=== PATIENT | female | born 1960 | race African-American/Black ===

== ENCOUNTER 2017-04-11 23:11 | Emergency (ER) | payer MEDICAID ==
[~2017-04-11] VITALS: Ht 167.6 cm; Wt 73.0 kg
[~2017-04-11 23:11] MED LIST: ASPI-1159 PO; ATOR20TA65 PO; EMTR1TAB13 PO; ESCI10TA54 PO; LOSA50TA20 PO; LURA40TA PO; METO-385 PO; OMEP-265 PO
[2017-04-12] MEDS ORDERED: FAMOTIDINE 20MG/2ML VIAL IV STA (00:23)
[2017-04-12] MEDS ORDERED: MORPHINE SULFATE 4 MG/ML CPJ (NOT FOR IM USE) IV STA (00:23)
[2017-04-12] MEDS ORDERED: METOCLOPRAMIDE HCL 10MG/2ML VIAL IV STA (00:23)
[2017-04-12] MEDS ORDERED: SODIUM CHLORIDE 0.9% 1,000 ML IV ONE (00:23)
[2017-04-12 00:53] LABS: BASOPHILS % 0.1 % (0.0-2.0); HEMATOCRIT. 46.5 % (36.0-48.0); HEMOGLOBIN. 14.8 g/dL (12.0-16.0); LYMPHOCYTES % 10.9 % (20.0-50.0); MEAN CORPUSCULAR HEMOGLOBIN 27.8 pg (28.0-32.0); MEAN CORPUSCULAR VOLUME 87.3 fL (81.0-99.0); MEAN PLATELET VOLUME 8.9 fl (7.4-10.4); MONOCYTES % 5.9 % (2.0-8.0); NEUTROPHILS % 83.1 % (40.0-76.0); PLATELET 206 x1000/uL (130-400); RED BLOOD CELL COUNT 5.32 mill/uL (4.2-5.4); RED CELL DISTRIBUTION WIDTH 14.4 % (11.6-14.6)
[2017-04-12 01:05] LABS: CHLORIDE 99 mEq/L (98-107)
[2017-04-12 01:16] LABS: CARBON DIOXIDE 23 mEq/L (21-32)
[2017-04-12 04:32] VITALS: BP 144/77
== END 2017-04-12 04:36 | disposition home or self-care (01) ==
LOC: ER 23:11
DX: G89.29 Other chronic pain (principal); R10.13 Epigastric pain; I10 Essential (primary) hypertension; F17.210 Nicotine dependence, cigarettes, uncomplicated; Z20.6 Contact with and (suspected) exposure to human immunodeficiency virus [HIV]; Z88.6 Allergy status to analgesic agent; Z79.82 Long term (current) use of aspirin; Z87.11 Personal history of peptic ulcer disease
CPT/HCPCS: 36415; 80053; 83690; 85025; 96361; 96374; 96375; 99285; J2270; J2765; J3490; J7030; Z7610

== ENCOUNTER 2017-05-04 13:30 | Emergency (ER) | payer MEDICAID ==
[~2017-05-04] VITALS: Ht 170.2 cm; Wt 64.0 kg
[2017-05-04 13:55] VITALS: BP 113/65
== END 2017-05-04 18:11 | disposition left against medical advice (07) ==
LOC: ER 15:29
DX: R29.810 Facial weakness (principal); Z53.21 Procedure and treatment not carried out due to patient leaving prior to being seen by health care provider

== ENCOUNTER 2017-05-07 22:56 | Emergency (ER) | payer MEDICAID ==
[~2017-05-07] VITALS: Ht 167.6 cm; Wt 73.0 kg
[2017-05-08] MEDS ORDERED: ONDANSETRON 4MG ODT PO STA (02:59)
[2017-05-08] MEDS ORDERED: MORPHINE SULFATE 4 MG/ML CPJ (NOT FOR IM USE) IV STA (02:59)
[2017-05-08] MEDS ORDERED: MAGNESIUM/ALUMINUM HYDROXIDE/SIMETHICONE 30ML UDC PO STA (02:59)
[2017-05-08] MEDS ORDERED: SODIUM CHLORIDE 0.9% 1,000 ML IV ONE (02:59)
[2017-05-08] MEDS ORDERED: FAMOTIDINE 20MG/2ML VIAL IV STA (02:59)
[2017-05-08 03:33] LABS: BASOPHILS % 0.4 % (0.0-2.0); HEMATOCRIT. 46.9 % (36.0-48.0); HEMOGLOBIN. 15.2 g/dL (12.0-16.0); LYMPHOCYTES % 12.6 % (20.0-50.0); MEAN CORPUSCULAR HEMOGLOBIN 27.6 pg (28.0-32.0); MEAN CORPUSCULAR VOLUME 85.3 fL (81.0-99.0); MEAN PLATELET VOLUME 8.9 fl (7.4-10.4); MONOCYTES % 6.1 % (2.0-8.0); NEUTROPHILS % 80.9 % (40.0-76.0); PLATELET 206 x1000/uL (130-400); RED CELL DISTRIBUTION WIDTH 14.4 % (11.6-14.6)
[2017-05-08 03:43] LABS: CLARITY URINE TURBID (CLEAR); COLOR URINE DARK YELLOW (YELLOW); KETONES URINE 1+ (NEGATIVE); LEUKOCYTE ESTERASE URINE 3+ (NEGATIVE); NITRITE URINE NEGATIVE (NEGATIVE); OCCULT BLOOD URINE TRACE (NEGATIVE); PROTEIN URINE 2+ (NEGATIVE)
[2017-05-08 03:45] LABS: INR 1.1; PROTHROMBIN TIME 11.6 sec (9.4-11.6)
[2017-05-08 03:47] LABS: CHLORIDE 95 mEq/L (98-107); ETHANOL BLOOD < 10 mg/dL
[2017-05-08 04:23] LABS: *AMPHETAMINES SCREEN URINE NEGATIVE (NEGATIVE); *BARBITURATES SCREEN URINE NEGATIVE (NEGATIVE); *BENZODIAZEPINES SCREEN URINE NEGATIVE (NEGATIVE); *COCAINE SCREEN URINE NEGATIVE (NEGATIVE); CANNABINOID URINE SCREEN PRESUMTIVE POSITIVE (NEGATIVE); METHADONE URINE SCREEN NEGATIVE (NEGATIVE); OPIATES URINE SCREEN PRESUMTIVE POSITIVE (NEGATIVE); PHENCYCLIDINE URINE SCREEN NEGATIVE (NEGATIVE)
[2017-05-08] MEDS ORDERED: POTASSIUM CHLORIDE 20MEQ/PACKET PO ONE (05:15)
[2017-05-08] MEDS ORDERED: CEFTRIAXONE 1 G PREMIX 50 ML IV ONE (05:15)
[2017-05-08] MEDS ORDERED: LANSOPRAZOLE 30MG DR CAPSULE NG ONE (05:15)
[2017-05-08] MEDS: POTASSIUM CHLORIDE 20MEQ TABLET SR PO NR ×2 (06:15→06:24)
[2017-05-08 07:48] VITALS: BP 200/100
== END 2017-05-08 07:50 | disposition home or self-care (01) ==
LOC: ER 22:56
DX: N39.0 Urinary tract infection, site not specified (principal); E86.0 Dehydration; I10 Essential (primary) hypertension; E87.6 Hypokalemia; R11.2 Nausea with vomiting, unspecified; Z79.82 Long term (current) use of aspirin; Z86.73 Personal history of transient ischemic attack (TIA), and cerebral infarction without residual deficits; Z91.14 Patient's other noncompliance with medication regimen; Z88.6 Allergy status to analgesic agent
CPT/HCPCS: 36415; 80053; 80305; 81001; 83690; 83735; 85025; 85610; 93005; 96361; 96365; 96375; 99285; G0482; J0696; J2270; J3490; J7030; Q0162; Z7610

== ENCOUNTER 2019-11-14 09:24 | Inpatient (IN) | payer MEDICAID ==
[~2019-11-14] VITALS: Ht 167.6 cm; Wt 75.4 kg
[~2019-11-14 09:24] MED LIST changes: -ASPI-1159 PO; +ASPI-1497 PO; -ESCI10TA54 PO; +ESCI10TA61 PO; -LOSA50TA20 PO; +LOSA50TA41 PO
[2019-11-14] MEDS ORDERED: ONDANSETRON HCL 4MG/2ML INJ IV STA (09:57)
[2019-11-14] MEDS ORDERED: MORPHINE SULFATE 4 MG/ML CPJ (NOT FOR IM USE) IV STA (09:57)
[2019-11-14] MEDS ORDERED: SODIUM CHLORIDE 0.9% 1,000 ML IV ONE (09:57)
[2019-11-14 10:34] LABS: CLARITY URINE CLEAR (CLEAR); COLOR URINE YELLOW (YELLOW); KETONES URINE NEGATIVE (NEGATIVE); LEUKOCYTE ESTERASE URINE TRACE (NEGATIVE); NITRITE URINE NEGATIVE (NEGATIVE); OCCULT BLOOD URINE NEGATIVE (NEGATIVE); PROTEIN URINE TRACE (NEGATIVE); SPECIFIC GRAVITY URINE 1.018 (1.005-1.030); UROBILINOGEN URINE 0.2 E.U./dL (0.2-1.0)
[2019-11-14 11:53] LABS: BASOPHILS % 0.4 % (0.0-2.0); HEMATOCRIT. 46.4 % (36.0-48.0); HEMOGLOBIN. 15.1 g/dL (12.0-16.0); LYMPHOCYTES % 16.7 % (20.0-50.0); MEAN CORPUSCULAR HEMOGLOBIN 28.5 pg (28.0-32.0); MEAN CORPUSCULAR VOLUME 87.5 fL (81.0-99.0); MONOCYTES % 5.6 % (2.0-8.0); NEUTROPHILS % 77.3 % (40.0-76.0); RED CELL DISTRIBUTION WIDTH 15.7 % (11.6-14.6)
[2019-11-14 11:58] LABS: CHLORIDE 100 mEq/L (98-107)
[2019-11-14 12:01] LABS: PROTHROMBIN TIME 10.6 sec (9.6-11.0)
[2019-11-14 12:05] LABS: HCG SCREEN NEGATIVE
[2019-11-14 12:21] LABS: MEAN PLATELET VOLUME 8.8 fl (7.4-10.4); PLATELET 172 x1000/uL (130-400)
[2019-11-14] MEDS ORDERED: MORPHINE SULFATE 4 MG/ML CPJ (NOT FOR IM USE) IV ONE (13:45)
[2019-11-14] MEDS ORDERED: HYDRALAZINE HCL 100MG TABLET PO ONE (14:15)
[2019-11-14] MEDS ORDERED: ACETAMINOPHEN 325MG TABLET PO PRN ×2 (15:45)
[2019-11-14] MEDS ORDERED: LORAZEPAM 0.5MG TABLET PO PRN (15:45)
[2019-11-14] MEDS ORDERED: DOCUSATE SODIUM 100MG CAPSULE PO PRN (15:45)
[2019-11-14] MEDS ORDERED: HYDROCODONE/ACETAMINOPHEN 5/325MG TABLET PO PRN (15:45)
[2019-11-14] MEDS ORDERED: GUAIFENESIN 200MG/10ML SUGAR FREE UDC PO PRN (15:45)
[2019-11-14] MEDS: SODIUM CHLORIDE 0.9% 1,000 ML IV SCH (16:21)
[2019-11-14 22:00] VITALS: BP 125/77
[2019-11-14 22:30] VITALS: BP 125/77
[2019-11-14] MEDS ORDERED: POTASSIUM CHLORIDE 20MEQ TABLET SR PO NR (23:15)
[2019-11-15] VITALS: BP 136/82
[2019-11-15] MEDS: HYDROMORPHONE HCL/PF 2MG/ML CPJ IV PRN (00:41)
[2019-11-15] MEDS: ONDANSETRON HCL 4MG/2ML INJ IV PRN ×2 (00:52→16:39)
[2019-11-15] MEDS: SODIUM CHLORIDE 0.9% 1,000 ML IV SCH ×3 (02:04→20:30)
[2019-11-15 04:00] VITALS: BP 132/82
[2019-11-15] MEDS ORDERED: PNEUMOCOCCAL 23-VAL P-SAC VAC 0.5 ML IM ONE (04:00)
[2019-11-15 06:47] LABS: CHLORIDE 101 mEq/L (98-107)
[2019-11-15 08:00] VITALS: BP 155/83
[2019-11-15] MEDS ORDERED: POTASSIUM CHLORIDE 20MEQ TABLET SR PO NR (08:39)
[2019-11-15] MEDS ORDERED: THIAMINE HCL 100MG TABLET PO SCH (09:00)
[2019-11-15 12:00] VITALS: BP 143/85
[2019-11-15] MEDS ORDERED: NON FORMULARY PATIENT HOME MED XX SCH ×3 (13:00)
[2019-11-15 16:00] VITALS: BP 154/85
[2019-11-15] MEDS ORDERED: SORBITOL 70% SOLN 30ML PO ONE (16:00)
[2019-11-15] MEDS: LOSARTAN POTASSIUM 50 MG TABLET PO SCH (16:15)
[2019-11-15] MEDS ORDERED: ATORVASTATIN CALCIUM 20MG TABLET PO SCH (17:00)
[2019-11-15 20:00] VITALS: BP 143/83
[2019-11-15] MEDS: SORBITOL 70% SOLN 30ML PO ONE ×2 (20:22→20:35)
[2019-11-15] MEDS: METOPROLOL TARTRATE 25MG TABLET PO SCH (21:27)
[2019-11-16] VITALS: BP 183/102
[2019-11-16] MEDS: HYDROMORPHONE HCL/PF 2MG/ML CPJ IV PRN ×2 (00:10→05:56)
[2019-11-16] MEDS: ONDANSETRON HCL 4MG/2ML INJ IV PRN (00:10)
[2019-11-16 04:00] VITALS: BP 168/102
[2019-11-16] MEDS: SODIUM CHLORIDE 0.9% 1,000 ML IV SCH (06:37)
[2019-11-16] MEDS ORDERED: OMEPRAZOLE 20MG CAPSULE EXTENDED RELEASE PO SCH (06:45)
[2019-11-16 08:00] VITALS: BP 187/97
[2019-11-16 08:05] LABS: CHLORIDE 106 mEq/L (98-107)
[2019-11-16 08:09] LABS: PARTIAL THROMBOPLASTIN TIME 26.9 sec (23.4-31.0); PROTHROMBIN TIME 10.9 sec (9.6-11.0)
[2019-11-16 08:18] LABS: HEMATOCRIT 39.6 % (36.0-48.0); HEMOGLOBIN 12.9 g/dL (12.0-16.0); MEAN CORPUSCULAR HEMOGLOBIN 28.4 pg (28.0-32.0); MEAN CORPUSCULAR VOLUME 87.2 fL (81.0-99.0); PLATELET 182 x1000/uL (130-400); RED BLOOD CELL COUNT 4.54 mill/uL (4.2-5.4); RED CELL DISTRIBUTION WIDTH 15.6 % (11.6-14.6)
[2019-11-16] MEDS: LOSARTAN POTASSIUM 50 MG TABLET PO SCH (09:00)
[2019-11-16] MEDS ORDERED: ASPIRIN 81MG EC TABLET PO SCH (09:00)
[2019-11-16] MEDS ORDERED: CITALOPRAM HYDROBROMIDE 10MG TABLET PO SCH (09:00)
[2019-11-16] MEDS: METOPROLOL TARTRATE 25MG TABLET PO SCH (09:01)
[2019-11-16] MEDS ORDERED: POTASSIUM CHLORIDE 20MEQ/PACKET PO NR (10:00)
[2019-11-16 11:58] VITALS: BP 180/89
[2019-11-16] MEDS ORDERED: CLONIDINE 0.1MG TABLET PO PRN (14:00)
[2019-11-16 15:09] VITALS: BP 155/89
[2019-11-16 15:59] VITALS: BP 180/79
[2019-11-17 10:06] LABS: % CD 4 POS. LYMPHOCYTES 47.3 % (30.8-58.5); % CD 8 POS. LYMPH 34.5 % (12.0-35.5); ABSOLUTE CD 3 1394 /uL (622-2402); ABSOLUTE CD 4 HELPER 804 /uL (359-1519); ABSOLUTE CD 8 SUPPRESSOR 587 /uL (109-897); ABSOLUTE LYMPHOCYTES 1.7 x10E3/uL (0.7-3.1); ABSOLUTE MONOCYTES 0.3 x10E3/uL (0.1-0.9); BASOPHILS 1 % (Not Estab.); CD4/CD8 RATIO 1.37 (0.92-3.72); HEMATOCRIT 39.9 % (34.0-46.6); HEMOGLOBIN 12.1 g/dL (11.1-15.9); IMMATURE GRANULOCYTES 0 % (Not Estab.); LYMPHOCYTES 43 % (Not Estab.); MEAN CORPUSCULAR HEMOGLOBIN 27.6 pg (26.6-33.0); MEAN CORPUSCULAR HGB CONC. 30.3 g/dL (31.5-35.7); MEAN CORPUSCULAR VOLUME 91 fL (79-97); MONOCYTES 8 % (Not Estab.); NEUTROPHILS 48 % (Not Estab.); PLATELETS 175 x10E3/uL (150-450); RBC 4.39 x10E6/uL (3.77-5.28); RED CELL DISTRIBUTION WIDTH 15.2 % (11.7-15.4)
[2019-11-17 13:11] LABS: ATYPICAL pANCA <1:20 titer (Neg:<1:20); SACCHAROMYCES CEREVISIAE IGG <20.0 Units (0.0-24.9); SACCHAROMYCES CEREVISIAE IGM <20.0 Units (0.0-24.9)
== END 2019-11-16 17:05 | disposition home or self-care (01) | DRG 254 ==
LOC: ER 09:24 → 5WST 14:44 → EDBEDREQ 14:49 → EDBEDREQSVC 14:49 → EDBEDREQTM 14:50 → ENRESERV 20:46
PROVIDERS: ADMIT Internal Medicine; ATTEND Internal Medicine
DX: K58.0 Irritable bowel syndrome with diarrhea (principal); I50.22 Chronic systolic (congestive) heart failure; I11.0 Hypertensive heart disease with heart failure; Z96.649 Presence of unspecified artificial hip joint; I08.0 Rheumatic disorders of both mitral and aortic valves; I16.1 Hypertensive emergency; E87.6 Hypokalemia; D72.810 Lymphocytopenia; M16.11 Unilateral primary osteoarthritis, right hip; N28.89 Other specified disorders of kidney and ureter; N39.0 Urinary tract infection, site not specified; Z79.82 Long term (current) use of aspirin; Z79.899 Other long term (current) drug therapy; I69.851 Hemiplegia and hemiparesis following other cerebrovascular disease affecting right dominant side
CPT/HCPCS: 36415; 74176; 80048; 80053; 81003; 83735; 84703; 85025; 85027; 86256; 86359; 86360; 86671; 87496; 87536; 90732; 93005; 96374; 99285; J1170; J2270; J2405; J7030

== ENCOUNTER 2019-11-19 10:49 | Inpatient (IN) | payer MEDICAID ==
[~2019-11-19] VITALS: Ht 167.6 cm; Wt 72.8 kg
[2019-11-19] MEDS ORDERED: ONDANSETRON HCL 4MG/2ML INJ IV STA (12:24)
[2019-11-19] MEDS ORDERED: SODIUM CHLORIDE 0.9% 1,000 ML IV ONE (12:24)
[2019-11-19] MEDS ORDERED: MORPHINE SULFATE 4 MG/ML CPJ (NOT FOR IM USE) IV STA (12:24)
[2019-11-19] MEDS ORDERED: HYDRALAZINE 20MG/ML VIAL IV ONE (12:45)
[2019-11-19 12:56] LABS: BASOPHILS % 0.4 % (0.0-2.0); HEMATOCRIT. 40.3 % (36.0-48.0); LYMPHOCYTES % 14.4 % (20.0-50.0); MEAN CORPUSCULAR HEMOGLOBIN 28.2 pg (28.0-32.0); MEAN CORPUSCULAR VOLUME 87.6 fL (81.0-99.0); MEAN PLATELET VOLUME 8.9 fl (7.4-10.4); MONOCYTES % 8.6 % (2.0-8.0); NEUTROPHILS % 76.6 % (40.0-76.0); PLATELET 182 x1000/uL (130-400); RED BLOOD CELL COUNT 4.61 mill/uL (4.2-5.4); RED CELL DISTRIBUTION WIDTH 16.1 % (11.6-14.6)
[2019-11-19 13:04] LABS: CHLORIDE 104 mEq/L (98-107)
[2019-11-19 13:08] LABS: PROTHROMBIN TIME 10.5 sec (9.6-11.0)
[2019-11-19 13:09] LABS: ETHANOL BLOOD < 10 mg/dL
[2019-11-19 13:36] LABS: CLARITY URINE CLEAR (CLEAR); COLOR URINE YELLOW (YELLOW); KETONES URINE NEGATIVE (NEGATIVE); LEUKOCYTE ESTERASE URINE NEGATIVE (NEGATIVE); NITRITE URINE NEGATIVE (NEGATIVE); OCCULT BLOOD URINE NEGATIVE (NEGATIVE); PH URINE 7.5 (4.5-8.0); PROTEIN URINE 2+ (NEGATIVE); SPECIFIC GRAVITY URINE 1.014 (1.005-1.030); UROBILINOGEN URINE 0.2 E.U./dL (0.2-1.0)
[2019-11-19 14:02] LABS: *AMPHETAMINES SCREEN URINE NEGATIVE (NEGATIVE); *BARBITURATES SCREEN URINE NEGATIVE (NEGATIVE); *BENZODIAZEPINES SCREEN URINE NEGATIVE (NEGATIVE); *COCAINE SCREEN URINE NEGATIVE (NEGATIVE); CANNABINOID URINE SCREEN PRESUMTIVE POSITIVE (NEGATIVE)
[2019-11-19 14:03] LABS: METHADONE URINE SCREEN NEGATIVE (NEGATIVE); OPIATES URINE SCREEN NEGATIVE (NEGATIVE); PHENCYCLIDINE URINE SCREEN NEGATIVE (NEGATIVE)
[2019-11-19] MEDS ORDERED: CLONIDINE 0.2MG TABLET PO ONE (15:00)
[2019-11-19] MEDS ORDERED: ASPIRIN 81MG TABLET PO ONE (15:00)
[2019-11-19] MEDS ORDERED: LEVOFLOXACIN 750MG PREMIX 150 ML IV ONE (15:00)
[2019-11-19] MEDS ORDERED: POTASSIUM CHLORIDE 20MEQ TABLET SR PO ONE (15:00)
[2019-11-19] MEDS ORDERED: METRONIDAZOLE 500 MG PREMIX 100 ML IV ONE (15:00)
[2019-11-19] MEDS ORDERED: CLONIDINE 0.1MG TABLET PO PRN (15:30)
[2019-11-19] MEDS ORDERED: DIPHENHYDRAMINE 50MG/ML VIAL IV PRN (15:30)
[2019-11-19] MEDS ORDERED: ONDANSETRON HCL 4MG/2ML INJ IV PRN (15:30)
[2019-11-19 15:48] LABS: PHOSPHORUS 2.8 mg/dL (2.5-4.9)
[2019-11-19] MEDS: MORPHINE SULFATE 2 MG/ML CPJ (NOT FOR IM USE) IV PRN ×2 (16:02→22:49)
[2019-11-19 16:20] VITALS: BP 221/119
[2019-11-19 16:22] VITALS: BP 221/119
[2019-11-19] MEDS: HYDRALAZINE 20MG/ML VIAL IV PRN (17:01)
[2019-11-19] MEDS ORDERED: HYDRALAZINE 20MG/ML VIAL IV SCH (18:00)
[2019-11-19] MEDS ORDERED: SORBITOL 70% SOLN 30ML PO NR (18:15)
[2019-11-19] MEDS ORDERED: MAGNESIUM/ALUMINUM HYDROXIDE/SIMETHICONE 30ML UDC PO PRN (18:15)
[2019-11-19] MEDS: METOCLOPRAMIDE HCL 10MG/2ML VIAL IV SCH (18:16)
[2019-11-19 20:00] VITALS: BP 147/85
[2019-11-19] MEDS ORDERED: PIPERACILLIN/TAZOBACTAM 3.375 G in DEXT 5% WATER 100 ML IV SCH (20:00)
[2019-11-19] MEDS: SODIUM CHLORIDE 0.9% 1,000 ML IV SCH (20:51)
[2019-11-19] MEDS: PIPERACILLIN/TAZOBACTAM 3.375 G in DEXT 5% WATER 100 ML IV SCH (22:24)
[2019-11-20] VITALS: BP 121/70
[2019-11-20] MEDS: METOCLOPRAMIDE HCL 10MG/2ML VIAL IV SCH ×5 (00:44→23:20)
[2019-11-20 04:00] VITALS: BP 137/84
[2019-11-20] MEDS: PIPERACILLIN/TAZOBACTAM 3.375 G in DEXT 5% WATER 100 ML IV SCH ×4 (04:18→23:20)
[2019-11-20 07:05] LABS: BASOPHILS % 0.5 % (0.0-2.0); HEMATOCRIT. 37.9 % (36.0-48.0); HEMOGLOBIN. 12.4 g/dL (12.0-16.0); LYMPHOCYTES % 25.9 % (20.0-50.0); MEAN CORPUSCULAR HEMOGLOBIN 28.3 pg (28.0-32.0); MEAN CORPUSCULAR VOLUME 86.4 fL (81.0-99.0); MEAN PLATELET VOLUME 9.3 fl (7.4-10.4); MONOCYTES % 12.6 % (2.0-8.0); PLATELET 192 x1000/uL (130-400); RED BLOOD CELL COUNT 4.39 mill/uL (4.2-5.4); RED CELL DISTRIBUTION WIDTH 16.1 % (11.6-14.6)
[2019-11-20 07:33] LABS: CHLORIDE 103 mEq/L (98-107)
[2019-11-20 08:00] VITALS: BP 153/95
[2019-11-20 08:00] LABS: LDL CHOLESTEROL 64 mg/dL (5-100)
[2019-11-20 08:02] LABS: HDL CHOLESTEROL 61 mg/dL (40-59)
[2019-11-20] MEDS ORDERED: POTASSIUM CHLORIDE 20MEQ TABLET SR PO SCH ×2 (10:15→13:00)
[2019-11-20] MEDS: METOPROLOL TARTRATE 50MG TABLET PO SCH ×2 (11:58→20:31)
[2019-11-20] MEDS: LOSARTAN POTASSIUM 50 MG TABLET PO SCH (11:58)
[2019-11-20 12:00] VITALS: BP 132/92
[2019-11-20 16:00] VITALS: BP 120/62
[2019-11-20] MEDS: SODIUM CHLORIDE 0.9% 1,000 ML IV SCH (17:06)
[2019-11-20 20:00] VITALS: BP 137/75
[2019-11-20] MEDS ORDERED: SORBITOL 70% SOLN 30ML PO SCH (20:00)
[2019-11-20] MEDS ORDERED: ATORVASTATIN CALCIUM 20MG TABLET PO SCH (21:00)
[2019-11-21] VITALS: BP 159/85
[2019-11-21 04:00] VITALS: BP 136/49
[2019-11-21] MEDS: METOCLOPRAMIDE HCL 10MG/2ML VIAL IV SCH ×3 (05:52→17:33)
[2019-11-21] MEDS: PIPERACILLIN/TAZOBACTAM 3.375 G in DEXT 5% WATER 100 ML IV SCH ×3 (05:52→17:33)
[2019-11-21] MEDS ORDERED: SORBITOL 70% SOLN 30ML PO SCH (06:00)
[2019-11-21] MEDS: MORPHINE SULFATE 2 MG/ML CPJ (NOT FOR IM USE) IV PRN ×2 (06:32→12:09)
[2019-11-21] MEDS ORDERED: OMEPRAZOLE 20MG CAPSULE EXTENDED RELEASE PO SCH (06:45)
[2019-11-21] MEDS ORDERED: NA PHOS,M-B/NA PHOS,DI-BA ENEMA 118ML PR SCH ×2 (09:00→09:30)
[2019-11-21] MEDS: LOSARTAN POTASSIUM 50 MG TABLET PO SCH (09:07)
[2019-11-21] MEDS: METOPROLOL TARTRATE 50MG TABLET PO SCH (09:07)
[2019-11-21 12:00] VITALS: BP 154/75
[2019-11-21] MEDS ORDERED: SIMETHICONE 40 MG/0.6 ML 30ML ONE (13:46)
[2019-11-21 14:12] LABS: CHLORIDE 109 mEq/L (98-107)
[2019-11-21 14:26] LABS: T4 FREE 1.95 ng/dL (0.76-1.46)
[2019-11-21] MEDS ORDERED: MIDAZOLAM HCL 5 MG/5 ML VIAL IV PRN (15:27)
[2019-11-21] MEDS ORDERED: MIDAZOLAM HCL 5 MG/5 ML VIAL ONE (15:27)
[2019-11-21] MEDS ORDERED: FENTANYL CITRATE/PF 50MCG/ML 2ML VIAL ONE (15:28)
[2019-11-21] MEDS ORDERED: FENTANYL CITRATE/PF 50MCG/ML 2ML VIAL IV PRN (15:28)
[2019-11-21] MEDS: HYDRALAZINE 20MG/ML VIAL IV PRN (15:43)
[2019-11-21] MEDS ORDERED: HYDRALAZINE 20MG/ML VIAL ONE (15:46)
[2019-11-21 17:22] VITALS: BP 162/80
[2019-11-21 20:00] VITALS: BP 140/64
[2019-11-21 20:17] VITALS: BP 140/64
== END 2019-11-21 21:31 | disposition home or self-care (01) | DRG 254 ==
LOC: ER 10:49 → 5WST 14:54 → ENRESERV 15:19
PROVIDERS: ADMIT Internal Medicine; ATTEND Internal Medicine
PROC: 0DBK8ZZ Excision of Ascending Colon, Via Natural or Artificial Opening Endoscopic (ICD-10-PCS; principal; 2019-11-21)
DX: K59.00 Constipation, unspecified (principal); K63.5 Polyp of colon; K92.2 Gastrointestinal hemorrhage, unspecified; N20.0 Calculus of kidney; K64.8 Other hemorrhoids; N39.0 Urinary tract infection, site not specified; N83.201 Unspecified ovarian cyst, right side; K44.9 Diaphragmatic hernia without obstruction or gangrene; Z96.641 Presence of right artificial hip joint; I11.0 Hypertensive heart disease with heart failure; E87.6 Hypokalemia; I16.0 Hypertensive urgency; I50.20 Unspecified systolic (congestive) heart failure; J45.909 Unspecified asthma, uncomplicated; K22.9 Disease of esophagus, unspecified; I35.1 Nonrheumatic aortic (valve) insufficiency; E78.5 Hyperlipidemia, unspecified; Z79.82 Long term (current) use of aspirin; Z79.899 Other long term (current) drug therapy; Z86.73 Personal history of transient ischemic attack (TIA), and cerebral infarction without residual deficits
CPT/HCPCS: 36415; 71045; 74018; 74176; 80048; 80053; 80061; 80305; 80320; 81003; 83735; 83880; 84100; 84132; 84439; 84443; 84481; 84484; 85025; 88305; 93005; 93970; 99285; J0360; J1956; J2250; J2270; J2405; J2543; J2765; J3010; J3490; J7030; J7060; G0480

== ENCOUNTER 2021-08-13 07:30 | Inpatient (IN) | payer MEDICAID, OTHER ==
[~2021-08-13] VITALS: Ht 172.7 cm; Wt 93.4 kg
[~2021-08-13 07:30] MED LIST changes: +ESCI-7 PO; -ESCI10TA61 PO
[2021-08-13] MEDS ORDERED: LORAZEPAM 2MG/ML CPJ IV ONE (08:00)
[2021-08-13 09:06] LABS: BASOPHILS % 0.3 % (0.0-2.0); HEMATOCRIT. 40.5 % (36.0-48.0); HEMOGLOBIN. 13.2 g/dL (12.0-16.0); LYMPHOCYTES % 19.7 % (20.0-50.0); MEAN CORPUSCULAR HEMOGLOBIN 29.2 pg (28.0-32.0); MEAN CORPUSCULAR VOLUME 89.5 fL (81.0-99.0); MEAN PLATELET VOLUME 8.6 fl (7.4-10.4); MONOCYTES % 5.8 % (2.0-8.0); NEUTROPHILS % 74.2 % (40.0-76.0); PLATELET 269 x1000/uL (130-400); RED BLOOD CELL COUNT 4.52 mill/uL (4.2-5.4); RED CELL DISTRIBUTION WIDTH 15.1 % (11.6-14.6)
[2021-08-13 09:14] LABS: CHLORIDE 101 mEq/L (98-107)
[2021-08-13 09:18] LABS: ETHANOL BLOOD < 10 mg/dL
[2021-08-13] MEDS ORDERED: LORAZEPAM 2MG/ML CPJ IV NR (09:45)
[2021-08-13] MEDS ORDERED: SODIUM CHLORIDE 0.9% 1,000 ML IV ONE (10:30)
[2021-08-13 15:19] LABS: *AMPHETAMINES SCREEN URINE NEGATIVE (NEGATIVE); *BARBITURATES SCREEN URINE NEGATIVE (NEGATIVE); *BENZODIAZEPINES SCREEN URINE NEGATIVE (NEGATIVE); *COCAINE SCREEN URINE NEGATIVE (NEGATIVE); METHADONE URINE SCREEN NEGATIVE (NEGATIVE)
[2021-08-13 15:20] LABS: CANNABINOID URINE SCREEN PRESUMTIVE POSITIVE (NEGATIVE); OPIATES URINE SCREEN PRESUMTIVE POSITIVE (NEGATIVE); PHENCYCLIDINE URINE SCREEN NEGATIVE (NEGATIVE)
[2021-08-13] MEDS ORDERED: AMLODIPINE 10MG TABLET PO NR (15:30)
[2021-08-13] MEDS ORDERED: TRAMADOL 50MG TABLET PO NR (15:33)
[2021-08-13] MEDS ORDERED: HYDRALAZINE 20MG/ML VIAL IV NR (15:33)
[2021-08-13 18:53] VITALS: BP 152/83
[2021-08-13 20:00] VITALS: BP 175/85
[2021-08-13] MEDS ORDERED: ACETAMINOPHEN 325MG TABLET PO PRN (20:15)
[2021-08-13] MEDS ORDERED: ONDANSETRON HCL 4MG/2ML INJ IV PRN (20:15)
[2021-08-13] MEDS: ASPIRIN 81MG TABLET PO SCH (20:42)
[2021-08-13] MEDS: LORAZEPAM 2MG/ML CPJ IV PRN (20:57)
[2021-08-13] MEDS: ATORVASTATIN CALCIUM 20MG TABLET PO SCH (21:00)
[2021-08-13] MEDS: METOPROLOL TARTRATE 50MG TABLET PO SCH (21:00)
[2021-08-13 23:53] LABS: HEMATOCRIT. 41.4 % (36.0-48.0); MEAN CORPUSCULAR HEMOGLOBIN 29.1 pg (28.0-32.0); MEAN CORPUSCULAR VOLUME 92.8 fL (81.0-99.0); MEAN PLATELET VOLUME 8.9 fl (7.4-10.4); PLATELET 215 x1000/uL (130-400); RED BLOOD CELL COUNT 4.45 mill/uL (4.2-5.4)
[2021-08-14] VITALS: BP_SYST 118; BP_SYST 137; BP_DIAS 62; BP_DIAS 68
[2021-08-14 00:09] LABS: CHLORIDE 106 mEq/L (98-107)
[2021-08-14 04:00] VITALS: BP 116/64
[2021-08-14 04:19] LABS: PLATELET ESTIMATE NORMAL
[2021-08-14] MEDS ORDERED: OMEPRAZOLE 20MG CAPSULE EXTENDED RELEASE PO ONE (04:46)
[2021-08-14] MEDS: OMEPRAZOLE 20MG CAPSULE EXTENDED RELEASE PO SCH (05:11)
[2021-08-14 08:00] VITALS: BP 140/75
[2021-08-14] MEDS ORDERED: ASPIRIN 81MG TABLET PO SCH (09:00)
[2021-08-14] MEDS: METOPROLOL TARTRATE 50MG TABLET PO SCH ×2 (11:05→20:35)
[2021-08-14] MEDS: LOSARTAN POTASSIUM 50 MG TABLET PO SCH (11:05)
[2021-08-14] MEDS: ASPIRIN 81MG TABLET PO SCH (11:05)
[2021-08-14 12:00] VITALS: BP 126/76
[2021-08-14] MEDS ORDERED: BICT1TAB PO (14:28)
[2021-08-14] MEDS ORDERED: ATEN50TA PO (14:29)
[2021-08-14] MEDS ORDERED: TAP5 PO (14:30)
[2021-08-14] MEDS ORDERED: CHLO25TA2 MT (14:30)
[2021-08-14] MEDS ORDERED: OMEP20CA14 PO (14:31)
[2021-08-14] MEDS ORDERED: POTA25TA8 PO (14:32)
[2021-08-14] MEDS ORDERED: VENL150C52 PO (14:34)
[2021-08-14 16:00] VITALS: BP 128/82
[2021-08-14] MEDS: ENOXAPARIN 40MG/0.4ML SYR SUBCUT SCH (16:08)
[2021-08-14 20:00] VITALS: BP 132/87
[2021-08-14] MEDS: ATORVASTATIN CALCIUM 20MG TABLET PO SCH (20:36)
[2021-08-15] VITALS (7 sets, daily range): BP systolic 85–144; BP diastolic 41–87
[2021-08-15] MEDS: OMEPRAZOLE 20MG CAPSULE EXTENDED RELEASE PO SCH (05:48)
[2021-08-15] MEDS: METOPROLOL TARTRATE 50MG TABLET PO SCH ×2 (08:11→21:00)
[2021-08-15] MEDS: LOSARTAN POTASSIUM 50 MG TABLET PO SCH (08:11)
[2021-08-15] MEDS: ASPIRIN 81MG TABLET PO SCH (08:11)
[2021-08-15 09:12] LABS: % CD 3 POS. LYMPHOCYTES 78.9 % (57.5-86.2); % CD 4 POS. LYMPHOCYTES 47.5 % (30.8-58.5); % CD 8 POS. LYMPH 29.8 % (12.0-35.5); ABSOLUTE CD 3 1815 /uL (622-2402); ABSOLUTE CD 4 HELPER 1093 /uL (359-1519); ABSOLUTE CD 8 SUPPRESSOR 685 /uL (109-897); ABSOLUTE LYMPHOCYTES 2.3 x10E3/uL (0.7-3.1); ABSOLUTE MONOCYTES 0.8 x10E3/uL (0.1-0.9); ABSOLUTE NEUTROPHILS 4.2 x10E3/uL (1.4-7.0); BASOPHILS 0 % (Not Estab.); CD4/CD8 RATIO 1.59 (0.92-3.72); HEMOGLOBIN 12.8 g/dL (11.1-15.9); IMMATURE GRANULOCYTES 0 % (Not Estab.); LYMPHOCYTES 31 % (Not Estab.); MEAN CORPUSCULAR VOLUME 91 fL (79-97); MONOCYTES 11 % (Not Estab.); NEUTROPHILS 58 % (Not Estab.); PLATELETS 263 x10E3/uL (150-450); RBC 4.42 x10E6/uL (3.77-5.28); RED CELL DISTRIBUTION WIDTH 13.1 % (11.7-15.4); WBC 7.3 x10E3/uL (3.4-10.8)
[2021-08-15] MEDS ORDERED: POTASSIUM CHLORIDE 20MEQ TABLET SR PO SCH (10:45)
[2021-08-15] MEDS: ENOXAPARIN 40MG/0.4ML SYR SUBCUT SCH (17:04)
[2021-08-15] MEDS: ATORVASTATIN CALCIUM 20MG TABLET PO SCH (22:08)
[2021-08-16] VITALS: BP 123/58
[2021-08-16 04:00] VITALS: BP 124/50
[2021-08-16 07:48] VITALS: BP 128/91
[2021-08-16] MEDS: ASPIRIN 81MG TABLET PO SCH (08:04)
[2021-08-16] MEDS: LOSARTAN POTASSIUM 50 MG TABLET PO SCH (08:04)
[2021-08-16] MEDS: METOPROLOL TARTRATE 50MG TABLET PO SCH ×2 (08:04→21:50)
[2021-08-16] MEDS: FAMOTIDINE 20MG TABLET PO SCH ×2 (08:04→21:49)
[2021-08-16 12:12] VITALS: BP 119/73
[2021-08-16] MEDS: ENOXAPARIN 40MG/0.4ML SYR SUBCUT SCH (13:09)
[2021-08-16 15:47] VITALS: BP 114/93
[2021-08-16 17:40] LABS: PROTHROMBIN TIME 10.7 sec (9.6-11.0)
[2021-08-16] MEDS ORDERED: IPRATROPIUM/ALBUTEROL 0.5-3(2.5)MG/3ML NEB HHN PRN (18:00)
[2021-08-16 20:00] VITALS: BP 124/76
[2021-08-16] MEDS: IPRATROPIUM/ALBUTEROL 0.5-3(2.5)MG/3ML NEB HHN SCH (21:13)
[2021-08-16] MEDS: ATORVASTATIN CALCIUM 20MG TABLET PO SCH (21:49)
[2021-08-16] MEDS: LORAZEPAM 2MG/ML CPJ IV PRN (23:21)
[2021-08-17] VITALS: BP 123/62
[2021-08-17] MEDS: IPRATROPIUM/ALBUTEROL 0.5-3(2.5)MG/3ML NEB HHN SCH ×4 (02:22→19:48)
[2021-08-17 04:00] VITALS: BP 153/98
[2021-08-17 08:00] VITALS: BP 158/100
[2021-08-17] MEDS: LOSARTAN POTASSIUM 50 MG TABLET PO SCH (09:38)
[2021-08-17] MEDS: FAMOTIDINE 20MG TABLET PO SCH ×2 (09:38→22:10)
[2021-08-17] MEDS: METOPROLOL TARTRATE 50MG TABLET PO SCH ×2 (09:39→21:00)
[2021-08-17 12:00] VITALS: BP 124/69
[2021-08-17] MEDS: ENOXAPARIN 40MG/0.4ML SYR SUBCUT SCH (13:49)
[2021-08-17 16:00] VITALS: BP 108/56
[2021-08-17 20:00] VITALS: BP 102/42
[2021-08-17] MEDS: ATORVASTATIN CALCIUM 20MG TABLET PO SCH (22:11)
[2021-08-17] MEDS: LORAZEPAM 2MG/ML CPJ IV PRN (22:37)
[2021-08-18] VITALS: BP 118/84
[2021-08-18] MEDS: IPRATROPIUM/ALBUTEROL 0.5-3(2.5)MG/3ML NEB HHN SCH ×4 (01:39→20:28)
[2021-08-18 04:00] VITALS: BP 139/85
[2021-08-18] MEDS: FAMOTIDINE 20MG TABLET PO SCH ×2 (10:20→21:20)
[2021-08-18] MEDS: LOSARTAN POTASSIUM 50 MG TABLET PO SCH (10:20)
[2021-08-18] MEDS: METOPROLOL TARTRATE 50MG TABLET PO SCH ×2 (10:20→21:20)
[2021-08-18 12:00] VITALS: BP 118/65
[2021-08-18 16:00] VITALS: BP 120/82
[2021-08-18 20:00] VITALS: BP 131/76
[2021-08-18] MEDS ORDERED: LORAZEPAM 2MG/ML CPJ IV PRN (21:00)
[2021-08-18] MEDS: ATORVASTATIN CALCIUM 20MG TABLET PO SCH (21:20)
[2021-08-19] VITALS (40 sets, daily range): BP systolic 101–147; BP diastolic 49–97
[2021-08-19] MEDS: IPRATROPIUM/ALBUTEROL 0.5-3(2.5)MG/3ML NEB HHN SCH ×4 (02:17→20:24)
[2021-08-19] MEDS ORDERED: THROMBIN (BOVINE) 5000 UNITS/VIAL TOP ONE (05:50)
[2021-08-19] MEDS ORDERED: GENTAMICIN SULF 40MG/ML 2ML VIAL ONE (05:50)
[2021-08-19] MEDS ORDERED: LIDOCAINE HCL/EPINEPHRINE 1%-EPI 1:100,000 20 ML VIAL ONE (05:51)
[2021-08-19 06:18] LABS: CHLORIDE 103 mEq/L (98-107)
[2021-08-19] MEDS ORDERED: HYDROMORPHONE HCL/PF 2MG/ML CPJ ONE ×2 (07:36→09:30)
[2021-08-19] MEDS ORDERED: ROCURONIUM BROMIDE 10MG/ML VIAL 5ML IV ONE ×2 (07:36→07:54)
[2021-08-19] MEDS ORDERED: PROPOFOL 200MG/20ML VIAL IV ONE (07:36)
[2021-08-19] MEDS ORDERED: DEXAMETHASONE 4MG/ML 1ML VIAL ONE (08:07)
[2021-08-19] MEDS ORDERED: HYDRALAZINE 20MG/ML VIAL ONE (08:07)
[2021-08-19] MEDS ORDERED: CEFAZOLIN SODIUM 1000MG/VIAL ONE (08:07)
[2021-08-19] MEDS ORDERED: ALBUMIN HUMAN 25GM/100ML (25%) IV ONE (08:09)
[2021-08-19] MEDS: METOPROLOL TARTRATE 50MG TABLET PO SCH ×2 (09:00→21:00)
[2021-08-19] MEDS: FAMOTIDINE 20MG TABLET PO SCH ×2 (09:00→21:00)
[2021-08-19] MEDS: LOSARTAN POTASSIUM 50 MG TABLET PO SCH (09:00)
[2021-08-19] MEDS ORDERED: PROPOFOL 10MG/ML 100ML 100 ML IV ONE (09:20)
[2021-08-19] MEDS ORDERED: CALCIUM CHLORIDE 1GM/10ML SYR IV ONE (09:35)
[2021-08-19] MEDS ORDERED: NICARDIPINE 40MG/200ML PREMIX 200 ML IV SCH (11:00)
[2021-08-19] MEDS: DEXT 5%/LACTATED RINGERS 1,000 ML IV SCH ×2 (11:18→21:31)
[2021-08-19] MEDS: DEXAMETHASONE 4MG/ML 1ML VIAL IV SCH ×2 (12:18→19:08)
[2021-08-19 12:53] LABS: BG BASE EXCESS -2.6 mmol/L (-2.0-2.0); BG CARBOXYHEMOGLOBIN 0.1 % (0.5-1.5); BG DEOXYHEMOGLOBIN 1.2 % (0.0-5.0); BG FRACTION INSPIRED OXYGEN 50; BG HCO3 ACT 23.7 mmol/L (22.0-26.0); BG METHEMOGLOBIN 0.3 % (0.0-1.5); BG OXYGEN SATURATION 98.8 % (92.0-98.5); BG OXYHEMOGLOBIN 98.4 % (94.0-97.0); BG PCO2 47.6 mmHg (35.0-45.0); BG PH 7.315 (7.350-7.450); BG PO2 140.8 mmHg (75.0-100.0); BG SAMPLE SITE ALINE; BG TOTAL HEMOGLOBIN 10.8 g/dL (12.0-18.0); BG VENT MODE VENT - AC
[2021-08-19] MEDS: PROPOFOL 10MG/ML 100ML 100 ML IV PRN ×3 (13:25→21:33)
[2021-08-19] MEDS ORDERED: CEFAZOLIN SODIUM 1000MG/VIAL IV SCH (14:00)
[2021-08-19] MEDS: CEFAZOLIN 1000MG PREMIX 50 ML IV SCH ×2 (19:09→21:30)
[2021-08-19] MEDS: ATORVASTATIN CALCIUM 20MG TABLET PO SCH (21:00)
[2021-08-20] VITALS (70 sets, daily range): BP systolic 97–175; BP diastolic 23–109
[2021-08-20] MEDS: PROPOFOL 10MG/ML 100ML 100 ML IV PRN ×2 (00:09→03:48)
[2021-08-20] MEDS: DEXAMETHASONE 4MG/ML 1ML VIAL IV SCH ×3 (00:46→11:35)
[2021-08-20] MEDS: MORPHINE SULFATE 4 MG/ML CPJ (NOT FOR IM USE) IV PRN ×3 (00:46→07:49)
[2021-08-20] MEDS: IPRATROPIUM/ALBUTEROL 0.5-3(2.5)MG/3ML NEB HHN SCH ×4 (02:03→20:20)
[2021-08-20] MEDS: DEXT 5%/LACTATED RINGERS 1,000 ML IV SCH ×2 (05:51→16:28)
[2021-08-20] MEDS: CEFAZOLIN 1000MG PREMIX 50 ML IV SCH ×3 (05:51→22:59)
[2021-08-20] MEDS: METOPROLOL TARTRATE 50MG TABLET PO SCH ×2 (08:41→11:37)
[2021-08-20] MEDS: LOSARTAN POTASSIUM 50 MG TABLET PO SCH ×2 (08:41→11:35)
[2021-08-20] MEDS: FAMOTIDINE 20MG TABLET PO SCH ×2 (08:41→11:35)
[2021-08-20] MEDS ORDERED: HYDROCODONE/ACETAMINOPHEN 5/325MG TABLET PO PRN (09:15)
[2021-08-20] MEDS: NICARDIPINE 100 MG in SODIUM CHLORIDE 0.9% 60 ML IV PRN ×3 (16:26)
[2021-08-20] MEDS: ATORVASTATIN CALCIUM 20MG TABLET PO SCH (21:07)
[2021-08-20] MEDS ORDERED: CLONIDINE 0.1MG TABLET PO PRN (21:30)
[2021-08-21] VITALS (41 sets, daily range): BP systolic 110–169; BP diastolic 46–106
[2021-08-21] MEDS: IPRATROPIUM/ALBUTEROL 0.5-3(2.5)MG/3ML NEB HHN SCH ×4 (00:15→20:58)
[2021-08-21] MEDS: DEXAMETHASONE 4MG/ML 1ML VIAL ONE ×2 (01:06→01:20)
[2021-08-21] MEDS: DEXT 5%/LACTATED RINGERS 1,000 ML IV SCH ×2 (01:08→12:35)
[2021-08-21] MEDS: CEFAZOLIN 1000MG PREMIX 50 ML IV SCH ×3 (06:46→22:00)
[2021-08-21] MEDS: FAMOTIDINE 20MG TABLET PO SCH ×2 (08:37→21:43)
[2021-08-21] MEDS: LOSARTAN POTASSIUM 50 MG TABLET PO SCH (08:37)
[2021-08-21] MEDS: AMLODIPINE 10MG TABLET PO SCH (08:38)
[2021-08-21] MEDS: METOPROLOL TARTRATE 50MG TABLET PO SCH ×2 (08:38→21:44)
[2021-08-21] MEDS ORDERED: NALOXONE HCL 0.4MG/ML VIAL IV PRN (10:00)
[2021-08-21] MEDS ORDERED: LACTULOSE 20G/30ML UDC PO SCH (12:45)
[2021-08-21] MEDS ORDERED: HYDR-4001 PO (15:30)
[2021-08-21] MEDS: ATORVASTATIN CALCIUM 20MG TABLET PO SCH (21:42)
[2021-08-22] MEDS: IPRATROPIUM/ALBUTEROL 0.5-3(2.5)MG/3ML NEB HHN SCH ×2 (02:39→08:05)
[2021-08-22 04:00] VITALS: BP 144/81
[2021-08-22] MEDS: CEFAZOLIN 1000MG PREMIX 50 ML IV SCH ×2 (06:11→14:54)
[2021-08-22 08:00] VITALS: BP 147/86
[2021-08-22] MEDS: FAMOTIDINE 20MG TABLET PO SCH ×2 (09:13→21:40)
[2021-08-22] MEDS: LOSARTAN POTASSIUM 50 MG TABLET PO SCH (09:13)
[2021-08-22] MEDS: AMLODIPINE 10MG TABLET PO SCH (09:13)
[2021-08-22] MEDS: METOPROLOL TARTRATE 50MG TABLET PO SCH ×2 (09:13→21:41)
[2021-08-22] MEDS ORDERED: HYDR-4001 MT (10:21)
[2021-08-22 12:00] VITALS: BP 142/86
[2021-08-22 16:00] VITALS: BP 122/71
[2021-08-22 20:00] VITALS: BP 135/81
[2021-08-22] MEDS: ATORVASTATIN CALCIUM 20MG TABLET PO SCH (21:40)
[2021-08-23] VITALS: BP 146/71
[2021-08-23 04:00] VITALS: BP 137/66
[2021-08-23 08:00] VITALS: BP 139/83
[2021-08-23] MEDS: AMLODIPINE 10MG TABLET PO SCH (08:57)
[2021-08-23] MEDS: FAMOTIDINE 20MG TABLET PO SCH (08:57)
[2021-08-23] MEDS: METOPROLOL TARTRATE 50MG TABLET PO SCH (08:58)
[2021-08-23] MEDS: LOSARTAN POTASSIUM 50 MG TABLET PO SCH (08:58)
[2021-08-23] MEDS ORDERED: DOCUSATE SODIUM 250MG CAPSULE PO SCH (11:00)
[2021-08-23] MEDS ORDERED: LACTULOSE 20G/30ML UDC PO NR (11:00)
[2021-08-23 12:00] VITALS: BP 134/74
[2021-08-23 16:00] VITALS: BP 117/77
[2021-08-23 17:38] VITALS: BP 128/70
== END 2021-08-23 21:40 | DRG 321 ==
LOC: ER 07:40 → 7EST 10:27 → ENRESERV 14:28 → MICUNO 08-19 09:45 → 6EST 08-21 09:30
PROVIDERS: ADMIT Internal Medicine; ATTEND Internal Medicine
PROC: 0RG1070 Fusion of Cervical Vertebral Joint with Autologous Tissue Substitute, Anterior Approach, Anterior Column, Open Approach (ICD-10-PCS; principal; 2021-08-19)
PROC: 01N10ZZ Release Cervical Nerve, Open Approach (ICD-10-PCS; 2021-08-19)
DX: M48.02 Spinal stenosis, cervical region (principal); N17.0 Acute kidney failure with tubular necrosis; G82.50 Quadriplegia, unspecified; M50.021 Cervical disc disorder at C4-C5 level with myelopathy; M47.12 Other spondylosis with myelopathy, cervical region; F12.90 Cannabis use, unspecified, uncomplicated; E78.00 Pure hypercholesterolemia, unspecified; E87.6 Hypokalemia; I10 Essential (primary) hypertension; M50.221 Other cervical disc displacement at C4-C5 level; F17.210 Nicotine dependence, cigarettes, uncomplicated; Z96.641 Presence of right artificial hip joint; J44.9 Chronic obstructive pulmonary disease, unspecified; Z20.822 Contact with and (suspected) exposure to COVID-19; G81.91 Hemiplegia, unspecified affecting right dominant side; M47.22 Other spondylosis with radiculopathy, cervical region; Z79.899 Other long term (current) drug therapy; Z79.82 Long term (current) use of aspirin; Z86.73 Personal history of transient ischemic attack (TIA), and cerebral infarction without residual deficits
CPT/HCPCS: 36415; 36600; 70551; 71045; 72040; 72141; 76000; 80048; 80053; 80305; 80320; 82375; 82805; 83880; 84478; 84484; 85025; 86359; 86360; 86850; 86900; 87426; 88311; 93005; 93306; 94002; 94640; 95925; 95926; 95928; 95929; 97116; 97161; 97164; 97166; 97530; 99291; C1713; C1893; J0360; J0690; J1100; J1170; J1580; J1650; J2060; J2270; J2704; J3490; J7030; J7050; J7121; L0172; P9047; C1762; G0480

== ENCOUNTER 2025-03-19 15:06 | Inpatient (IN) | payer MEDICAID ==
[~2025-03-19] VITALS: Ht 162.6 cm; Wt 73.7 kg
[~2025-03-19 15:06] MED LIST changes: -ASPI-1497 PO; +ATEN50TA PO; +BICT1TAB PO; +CHLO25TA2 MT; +HYDR-4001 MT; -LURA40TA PO; +LURA40TA2 PO; +METH-371 PO; +OMEP20CA14 PO; +POTA25TA8 PO; +VENL150C52 PO
[2025-03-19 15:07] VITALS: O2SAT 99
[2025-03-19] MEDS: ONDANSETRON HCL 4MG/2ML INJ IV ONE (15:50)
[2025-03-19] MEDS: SODIUM CHLORIDE 0.9% 1,000 ML IV ONE (15:50)
[2025-03-19] MEDS: KETOROLAC 30MG/ML VIAL IV ONE (15:50)
[2025-03-19] MEDS: MAGNESIUM/ALUMINUM HYDROXIDE/SIMETHICONE 30ML UDC PO ONE (15:50)
[2025-03-19] MEDS: FAMOTIDINE 20MG/2ML VIAL IV ONE (15:58)
[2025-03-19 16:00] LABS: BASOPHILS % 0.5 % (0.0-2.0); EOSINOPHILS % 0.0 % (0.0-5.0); HEMATOCRIT. 41.5 % (36.0-48.0); HEMOGLOBIN. 12.8 g/dL (12.0-16.0); LYMPHOCYTES % 21.4 % (20.0-50.0); MONOCYTES % 5.5 % (2.0-8.0); NEUTROPHILS % 72.6 % (40.0-76.0); RED BLOOD CELL COUNT 4.69 mill/uL (4.2-5.4); RED CELL DISTRIBUTION WIDTH 16.8 % (11.6-14.6)
[2025-03-19 16:16] LABS: INR 1.0
[2025-03-19 16:24] LABS: CREATININE 0.8 mg/dL (0.6-1.0)
[2025-03-19 16:25] LABS: ETHANOL BLOOD < 10 mg/dL (<10); UREA NITROGEN BLOOD < 5 mg/dL (9-23)
[2025-03-19 16:26] LABS: ASPARTATE AMINOTRANSFERASE 17 IU/L (<34)
[2025-03-19 16:27] LABS: BILIRUBIN DIRECT 0.2 mg/dL (<=3.0); BILIRUBIN TOTAL 0.6 mg/dL (0.1-1.0); PROTEIN TOTAL 7.1 g/dL (6.0-8.3)
[2025-03-19 17:19] LABS: MEAN PLATELET VOLUME 8.9 fl (7.4-10.4); PLATELET 233 x1000/uL (130-400)
[2025-03-19] MEDS: MAGNESIUM 1 G PREMIX 100 ML IV SCH (17:47)
[2025-03-19] MEDS: MAGNESIUM 2 G PREMIX 50 ML IV NR (19:03)
[2025-03-19 20:29] LABS: *AMPHETAMINES SCREEN URINE NEGATIVE (NEGATIVE); *BARBITURATES SCREEN URINE NEGATIVE (NEGATIVE); *BENZODIAZEPINES SCREEN URINE NEGATIVE (NEGATIVE); *COCAINE SCREEN URINE NEGATIVE (NEGATIVE); CANNABINOID URINE SCREEN NEGATIVE (NEGATIVE); ECSTASY MDMA SCREEN URINE NEGATIVE (NEGATIVE); METHADONE URINE SCREEN NEGATIVE (NEGATIVE); OPIATES URINE SCREEN NEGATIVE (NEGATIVE); PHENCYCLIDINE URINE SCREEN NEGATIVE (NEGATIVE)
[2025-03-19 20:47] LABS: CLARITY URINE CLEAR (CLEAR); COLOR URINE YELLOW (YELLOW); GLUCOSE URINE NEGATIVE (NEGATIVE); KETONES URINE NEGATIVE (NEGATIVE); LEUKOCYTE ESTERASE URINE NEGATIVE (NEGATIVE); NITRITE URINE NEGATIVE (NEGATIVE); OCCULT BLOOD URINE NEGATIVE (NEGATIVE); PH URINE 7.5 (4.5-8.0); PROTEIN URINE TRACE (NEGATIVE); SPECIFIC GRAVITY URINE 1.011 (1.005-1.030); UROBILINOGEN URINE 0.2 E.U./dL (0.2-1.0)
[2025-03-19 21:00] VITALS: BP 156/90; PULSE 78; RESP 18; TEMP 36.6; O2SAT 97
[2025-03-19 21:22] LABS: BACTERIA URINE TRACE; RBC URINE 0-2 /hpf (0-2); SQUAMOUS EPITHELIAL CELL URINE FEW /lpf (RARE/1+); WBC URINE NONE SEEN /hpf (0-2)
[2025-03-19] MEDS ORDERED: ONDANSETRON HCL 4MG TABLET PO PRN (21:45)
[2025-03-19 22:00] VITALS: BP 156/22; PULSE 86; RESP 19; TEMP 36.5848
[2025-03-19] MEDS ORDERED: NALOXONE HCL 0.4MG/ML VIAL IV PRN (22:00)
[2025-03-20] VITALS: BP 144/144; PULSE 74; RESP 17; TEMP 36.5; O2SAT 97
[2025-03-20 04:00] VITALS: BP 141/64; PULSE 56; RESP 18; TEMP 36.7; O2SAT 98
[2025-03-20] MEDS: PANTOPRAZOLE 40MG DR TABLET PO SCH (06:32)
[2025-03-20 08:00] VITALS: BP 149/80; PULSE 60; RESP 16; TEMP 36.2; O2SAT 99
[2025-03-20] MEDS: AMLODIPINE 10MG TABLET PO SCH (09:51)
[2025-03-20 12:00] VITALS: BP 142/60; PULSE 66; RESP 18; TEMP 36.6; O2SAT 98
[2025-03-20] MEDS ORDERED: IPRATROPIUM/ALBUTEROL 0.5-3(2.5)MG/3ML NEB HHN PRN (12:15)
[2025-03-20] MEDS ORDERED: ONDANSETRON HCL 4MG/2ML INJ IV PRN (12:15)
[2025-03-20] MEDS ORDERED: ACETAMINOPHEN 325MG TABLET PO PRN (12:15)
[2025-03-20 16:00] VITALS: BP 132/66; PULSE 60; RESP 16; TEMP 36.2; O2SAT 99
[2025-03-20] MEDS: ATORVASTATIN CALCIUM 20MG TABLET PO SCH (17:44)
[2025-03-20] MEDS ORDERED: MEDICATION NOT ON FORMULARY EA (Escitalopram Oxalate 1 TAB) PO SCH (18:00)
[2025-03-20] MEDS: HYDROCODONE/ACETAMINOPHEN 5/325MG TABLET PO PRN (19:48)
[2025-03-20 20:00] VITALS: BP 194/118; PULSE 100; RESP 18; TEMP 36.7; O2SAT 99
[2025-03-20 21:27] LABS: BASOPHILS % 0.7 % (0.0-2.0); EOSINOPHILS % 0.1 % (0.0-5.0); HEMATOCRIT. 42.6 % (36.0-48.0); HEMOGLOBIN. 13.5 g/dL (12.0-16.0); LYMPHOCYTES % 38.5 % (20.0-50.0); MEAN PLATELET VOLUME 9.3 fl (7.4-10.4); MONOCYTES % 6.6 % (2.0-8.0); NEUTROPHILS % 54.1 % (40.0-76.0); PLATELET 224 x1000/uL (130-400); RED BLOOD CELL COUNT 4.82 mill/uL (4.2-5.4); RED CELL DISTRIBUTION WIDTH 16.9 % (11.6-14.6)
[2025-03-20] MEDS: MORPHINE SULFATE 4 MG/ML INJ (FOR IV/IM USE) IV SCH (22:01)
[2025-03-21] VITALS: BP 176/115; PULSE 113; RESP 20; TEMP 36.6; O2SAT 100
[2025-03-21 00:32] LABS: CREATININE 0.9 mg/dL (0.6-1.0); UREA NITROGEN BLOOD 7 mg/dL (9-23)
[2025-03-21] MEDS: METOCLOPRAMIDE HCL 10MG/2ML VIAL IV PRN (01:35)
[2025-03-21] MEDS: HYDRALAZINE 20MG/ML VIAL IV PRN (01:39)
[2025-03-21] MEDS: MORPHINE SULFATE 2 MG/ML INJ (NOT FOR IM USE) IV PRN (02:22)
[2025-03-21 04:00] VITALS: BP 167/106; PULSE 109; RESP 18; TEMP 36.6; O2SAT 100
[2025-03-21 06:46] LABS: BASOPHILS % 0.6 % (0.0-2.0); EOSINOPHILS % 0.1 % (0.0-5.0); HEMATOCRIT. 38.0 % (36.0-48.0); HEMOGLOBIN. 12.0 g/dL (12.0-16.0); LYMPHOCYTES % 26.7 % (20.0-50.0); MEAN PLATELET VOLUME 8.8 fl (7.4-10.4); MONOCYTES % 6.9 % (2.0-8.0); NEUTROPHILS % 65.7 % (40.0-76.0); PLATELET 238 x1000/uL (130-400); RED BLOOD CELL COUNT 4.38 mill/uL (4.2-5.4); RED CELL DISTRIBUTION WIDTH 16.1 % (11.6-14.6)
[2025-03-21 07:06] LABS: CREATININE 0.7 mg/dL (0.6-1.0); UREA NITROGEN BLOOD 6 mg/dL (9-23)
[2025-03-21 08:00] VITALS: BP 142/91; PULSE 92; RESP 18; TEMP 36.8; O2SAT 98
[2025-03-21] MEDS ORDERED: [UNRECOGNIZED DRUG - OTHER] PO SCH (09:00)
[2025-03-21] MEDS ORDERED: PANTOPRAZOLE SODIUM 40 MG/VIAL IV SCH (09:00)
[2025-03-21] MEDS ORDERED: MEDICATION NOT ON FORMULARY EA (Bictegrav/Emtricit/Tenofov Ala (Biktarvy 50-200-25 mg Ta PO SCH (09:00)
[2025-03-21] MEDS ORDERED: ATENOLOL 50 MG TABLET PO SCH (09:00)
[2025-03-21] MEDS: LOSARTAN 50 MG TABLET PO SCH (09:53)
[2025-03-21] MEDS: METHIMAZOLE 5MG TABLET PO SCH (09:53)
[2025-03-21] MEDS: CHLORTHALIDONE 25MG TABLET PO SCH (09:53)
[2025-03-21] MEDS: VENLAFAXINE HCL 37.5MG SR CAPSULE 24HR PO SCH (09:54)
[2025-03-21] MEDS: METOPROLOL SUCCINATE 50MG ER TABLET PO SCH (09:54)
[2025-03-21 12:00] VITALS: BP 164/93; PULSE 83; RESP 17; TEMP 36.6
[2025-03-21 16:00] VITALS: BP 112/60; PULSE 70; RESP 16; TEMP 36.4; O2SAT 100
[2025-03-21 16:17] VITALS: BP 120/78; PULSE 80; RESP 18; TEMP 96.8
== END 2025-03-21 21:13 | DRG 465 ==
LOC: ER 15:06 → EDBEDREQTM 20:17 → EDBEDREQ 20:17 → ENRESERV 20:41 → 6WST 21:10
PROVIDERS: ADMIT Internal Medicine; ATTEND Internal Medicine
DX: N20.0 Calculus of kidney (principal); E78.00 Pure hypercholesterolemia, unspecified; K76.0 Fatty (change of) liver, not elsewhere classified; I12.9 Hypertensive chronic kidney disease with stage 1 through stage 4 chronic kidney disease, or unspecified chronic kidney disease; J45.909 Unspecified asthma, uncomplicated; N18.9 Chronic kidney disease, unspecified; K21.9 Gastro-esophageal reflux disease without esophagitis; E83.42 Hypomagnesemia; F17.210 Nicotine dependence, cigarettes, uncomplicated; Z79.899 Other long term (current) drug therapy
CPT/HCPCS: 36415; 74181; 76705; 80048; 80076; 80305; 80320; 81003; 83735; 85025; 96361; 96365; 96367; 96375; 99291; J0360; J1308; J1885; J2270; J2405; J2765; J3475; J7030; G0480